=== PATIENT | female | born 1965 | race Hispanic/Latino ===

== ENCOUNTER 2019-08-09 07:45 | Emergency (ER) | payer SELFPAY ==
[~2019-08-09] VITALS: Ht 152.4 cm; Wt 77.1 kg
[~2019-08-09 07:45] MED LIST: CHOLESTEROL MEDICINE; Z.0.LISINOPRIL20 MG; [UNRECOGNIZED DRUG - OTHER]
[2019-08-09] MEDS ORDERED: DIAZEPAM 2 MG TAB PO STA (08:07)
[2019-08-09] MEDS ORDERED: KETOROLAC TROMETHAMINE 60 MG/2 ML VIAL IM ONE (08:15)
[2019-08-09] MEDS ORDERED: DIAZEPAM 5 MG TAB ONE (08:17)
--- NOTE | 2019-08-09 08:39 | Emergency Department Note ---
History of Present Illnes History of Present Illness Chief Complaint: Back Pain History of Present Illness This is a 53 year old female PATIENT IN FROM HOME WITH COMPLAINTS OF UPPER BACK PAIN SINCE A SLIP AND FALL 1 MONTH AGO; STATES THAT THE PAIN GOT WORSE YESTERDAY; RATES PAIN 10/10. PATIENT ALERT AND ORIENTED, RESP EVEN AND NONLABORED, APPEARS IN NO DISTRESS. Historian: Patient Arrival Mode: Car [employer] Of [employer] Required: Yes Onset (how long ago): month(s) (1) Location: upper back Quality: pain Radiation: Reports non-radiation Severity: severe Timing of current episode: constant Progression: unchanged Chronicity: chronic Context: Denies recent illness Relieving factors: none Exacerbating factors: movement Associated symptoms: Reports denies other symptoms Treatments prior to arrival: NSAID Past Medical/Family History Physician Review I have reviewed the patient's past medical and family history. Any updates have been documented here. Past Medical History Recent Fever: No Clinical Suspicion of Infectio: No New/Unexplained Change in Ment: No Past Medical History: Hypertension, Diabetes Other Medical History: PANCREATITIS, DIABETIC, HTN, Past Surgical History: Cholecysctectomy, Other Surgery: X 2 Social History Smoking Cessation: Never Smoker Counseling Performed: No Alcohol Use: None Any Illegal Drug Use: No Physically hurt or threatened: No Other Last Tetanus: UNKNOWN Any Pre-Existing Lines (PICC,: No Review of Systems Review of Systems Constitutional: Reports no symptoms EENTM: Reports no symptoms Cardiovascular: Reports no symptoms Respiratory: Reports no symptoms Gastrointestinal: Reports no symptoms Genitourinary: Reports no symptoms Musculoskeletal: Reports as per HPI, Reports back pain Integumentary: Reports no symptoms Neurological: Reports no symptoms Psychological: Reports no symptoms Endocrine: Reports no symptoms Hematological/Lymphatic: Reports no symptoms Physical Exam Related Data Allergies: Coded Allergies: No Known Allergies (Unverified , 05/03/11) Triage Vital Signs Vital Signs Date Time Temp Pulse Resp B/P (MAP) Pulse Ox O2 Delivery O2 Flow Rate FiO2 08/09/19 07:58 99.4 93 20 118/68 98 Room Air Vital signs reviewed: Yes Physical Exam CONSTITUTIONAL Constitutional: Present well-developed, Present well-nourished HENT HENT: Present normocephalic, Present atraumatic, Present oropharynx clear/moist, Present nose normal HENT L/R: Present left ext ear normal, Present right ext ear normal EYES Eyes: Reports PERRL, Reports conjunctivae normal NECK Neck: Present ROM normal PULMONARY Pulmonary: Present effort normal, Present breath sounds normal CARDIOVASCULAR Cardiovascular: Present regular rhythm, Present heart sounds normal, Present capillary refill normal, Present normal rate GASTROINTESTINAL Abdominal: Present soft, Present nontender, Present bowel sounds normal GENITOURINARY Genitourinary: Present exam deferred SKIN Skin: Present warm, Present dry MUSCULOSKELETAL Musculoskeletal: Present ROM normal, Present other (no spine tenderness, bilateral upper thoracic paraspinal muscle tenderness/spasm R>L) NEUROLOGICAL Neurological: Present alert, Present oriented x 3, Present no gross motor or sensory deficits PSYCHOLOGICAL Psychological: Present mood/affect normal, Present judgement normal Assessment & Plan Medical Decision Making MDM Toradol IM and Valium po for muscle spasm Reassessment Reassessment pt improved, DC home with Naprosyn and Valium, F/U with PCP Sunday! Assessment & Plan Final Impression: (1) Muscle spasm Depart Disposition: HOME, SELF-CARE Last Vital Signs Date Time Temp Pulse Resp B/P (MAP) Pulse Ox O2 Delivery O2 Flow Rate FiO2 08/09/19 07:58 99.4 93 20 118/68 98 Room Air Home Meds Reported Medications [Cholesterol Medicine] No Conflict Check, DAILY 05/03/11 Metformin Hcl (Glumetza) 1,000 Mg [id number], BID 05/03/11 Lisinopril (Lisinopril) 20 Mg Tablet, DAILY 05/03/11 Medications in the ED Ketorolac Tromethamine 60 mg ONCE ONCE IM Last administered on 08/09/19at 08:15; Admin Dose 60 MG; Start 08/09/19 at 08:15; Stop 08/09/19 at 08:16; Status UNV Diazepam 5 mg ONCE STAT PO Last administered on 08/09/19at 08:15; Admin Dose 5 MG; Start 08/09/19 at 08:07; Stop 08/09/19 at 08:08; Status UNV Diazepam 5 mg STK-MED ONCE .ROUTE ; Start 08/09/19 at 08:17; Stop 08/09/19 at 08:12; Status DC FLORENCE SHEARER MD Aug 09, 2019 08:39
== END 2019-08-09 09:16 | disposition home or self-care (01) ==
LOC: ER 08:22
DX: M62.830 Muscle spasm of back (principal); M54.89 Other dorsalgia; W01.0XXA Fall on same level from slipping, tripping and stumbling without subsequent striking against object, initial encounter; I10 Essential (primary) hypertension; E11.9 Type 2 diabetes mellitus without complications
CPT/HCPCS: 99283; J1885